=== PATIENT | female | born 1960 | race Caucasian/White ===

== ENCOUNTER → 2021-05-10 | Day surgery (SDC) | payer OTHER ==
[~2021-05-10] VITALS: Ht 165.1 cm; Wt 176.0 kg
[~2021-05-10] MED LIST: ALPR3TAB PO; CALC1CAP7 PO; ESOM40CA PO; GABA300C18 PO; IV RINGERS,LACTATED 1000ML 1,000 ML IV SCH; LIDOCAINE 2% PF 5 ML VIAL. ONE; OLAN5TAB67 PO; PRED20TA PO; PROPOFOL 10 MG/ML (20ML) VIAL. IV ONE; THIA100T22 PO; WARF3TAB50 PO
[2021-05-10 12:11] VITALS: BP 172/82
[2021-05-10 12:53] VITALS: BP 171/76
== END | disposition home or self-care (01) ==
LOC: SURG 11:37
PROVIDERS: ATTEND Surgery
DX: R13.10 Dysphagia, unspecified (principal); Z43.1 Encounter for attention to gastrostomy; I25.10 Atherosclerotic heart disease of native coronary artery without angina pectoris; I10 Essential (primary) hypertension; E78.00 Pure hypercholesterolemia, unspecified; J43.9 Emphysema, unspecified; Z79.82 Long term (current) use of aspirin; Z79.899 Other long term (current) drug therapy; Z98.890 Other specified postprocedural states; Z87.891 Personal history of nicotine dependence; Z72.89 Other problems related to lifestyle; Z88.0 Allergy status to penicillin; Z88.8 Allergy status to other drugs, medicaments and biological substances; Z20.822 Contact with and (suspected) exposure to COVID-19
CPT/HCPCS: 43235; 87426; J2704; 43247